=== PATIENT | male | born 1980 | race Caucasian/White ===

== ENCOUNTER 2017-06-23 22:02 | Emergency (ER) | payer MEDICARE, MEDICAID ==
[~2017-06-23] VITALS: Ht 182.9 cm; Wt 93.5 kg
[2017-06-23 22:03] VITALS: BP 126/81
[2017-06-23] MEDS ORDERED: PROPARACAINE OPHTH 0.5%, 15ML ONE (22:39)
[2017-06-23] MEDS ORDERED: FLUORESCEIN OPHTHALMIC 1 MG STRIP ONE (22:39)
[2017-06-23] MEDS ORDERED: DIPH,PERTUSS(ACELL),TET VAC/PF NC IM-VACC ONE (23:00)
[2017-06-23] MEDS ORDERED: DIPH,PERTUSS(ACELL),TET VAC/PF 0.5 ML IM-VACC ONE ×2 (23:00→23:03)
== END 2017-06-23 23:12 | disposition home or self-care (01) ==
LOC: ED 23:00
DX: S05.01XA Injury of conjunctiva and corneal abrasion without foreign body, right eye, initial encounter (principal); J00 Acute nasopharyngitis [common cold]; X58.XXXA Exposure to other specified factors, initial encounter; Y93.89 Activity, other specified; Y92.89 Other specified places as the place of occurrence of the external cause; Y99.8 Other external cause status
CPT/HCPCS: 90471; 90715